=== PATIENT | male | born 1940 | race Caucasian/White ===

== ENCOUNTER 2018-10-30 10:20 | Emergency (ER) | payer MEDICARE ==
[2018-10-30] MEDS ORDERED: Adenosine 6 MG/2 ML SDV IVPUSH ONE (10:35)
[2018-10-30] MEDS ORDERED: Propofol 200 MG/20 ML SDV IVPUSH ONE (10:47)
--- NOTE | 2018-10-30 10:54 | EDM.PDOC ---
ED HPI GENERAL MEDICAL PROBLEM - General Chief Complaint: Chest Pain Stated Complaint: [facility] Time Seen by Provider: 10/30/18 10:30 Source of Information: Reports: Patient, EMS, Family History Limitations: Reports: No Limitations - History of Present Illness INITIAL COMMENTS - FREE TEXT/NARRATIVE: 78-year-old male developed fairly sudden onset of mild shortness of breath and slight chest pressure and a half ago. The ambulance was called and he was found to be in a very rapid wide complex tachycardia. Mildly diaphoretic. Onset: Today, Sudden Duration: Hour(s): (Symptoms for the past 90 minutes) Location: Reports: Chest (Mild chest tightness) Associated Symptoms: Reports: Shortness of Breath, Weakness. Denies: Cough, Nausea/Vomiting Anterior Chest Pain Score (Numeric/FACES): 3 - Related Data Allergies Allergy/AdvReac Type Severity Reaction Status Date / Time tree polen Allergy Cannot Uncoded 10/30/18 10:33 Remember Home Meds: Home Meds Hydrochlorothiazide/Lisinopril [Lisinopril-HCTZ 20-25 MG] 20 mg PO DAILY [History] Pravastatin Sodium 40 mg PO BEDTIME 08/30/13 [History] amLODIPine Besylate [Amlodipine Besylate] 10 mg PO DAILY 08/30/13 [History] metFORMIN [Glucophage XR] 1,000 mg PO DAILY 08/30/13 [History] Rivaroxaban [Xarelto] 10 mg PO DAILY 09/04/13 [History] Acetaminophen [Tylenol] 1 tab PO Q4H PRN 09/05/13 [History] Aspirin [Adult Low Dose Aspirin EC] 81 mg PO DAILY 09/19/13 [History] Cod Liver Oil 1 each PO DAILY 10/30/18 [History] Social & Family History - Tobacco Use Smoking Status *Q: Never Smoker Second Hand Smoke Exposure: No - Caffeine Use Caffeine Use: Reports: Coffee - Alcohol Use Days Per Week of Alcohol Use: 7 Number of Drinks Per Day: 2 Total Drinks Per Week: 14 - Recreational Drug Use Recreational Drug Use: No ED ROS GENERAL - Review of Systems Review Of Systems: See Below Constitutional: Reports: Malaise. Denies: Fever, Chills HEENT: Reports: No Symptoms Respiratory: Reports: Shortness of Breath. Denies: Cough Cardiovascular: Reports: Palpitations GI/Abdominal: Denies: Abdominal Pain, Nausea, Vomiting Skin: Reports: Diaphoresis Neurological: Reports: Weakness Psychiatric: Reports: No Symptoms ED EXAM, GENERAL - Physical Exam Exam: See Below Exam Limited By: No Limitations General Appearance: Alert, No Apparent Distress Eye Exam: Bilateral Eye: Normal Inspection Head: Atraumatic Respiratory/Chest: No Respiratory Distress, Lungs Clear Cardiovascular: Tachycardia GI/Abdominal: Soft, Non-Tender Extremities: Other (Just a trace of bilateral symmetric edema) Neurological: Alert, Oriented, No Motor/Sensory Deficits Psychiatric: Normal Affect, Normal Mood Skin Exam: Diaphoretic Course - Vital Signs Last Recorded V/S: Last Vital Signs Temp 95.5 F 10/30/18 10:33 Pulse 99 10/30/18 11:15 Resp 14 10/30/18 11:15 BP 118/73 10/30/18 11:15 Pulse Ox 99 10/30/18 11:15 - Orders/Labs/Meds Orders: Active Orders 24 hr Category Date Time Status EKG Documentation Completion [RC] ASDIRECTED Care 10/30/18 10:54 Active EKG 12 Lead [EK] Routine Ther 10/30/18 10:54 Ordered Labs: Laboratory Tests 10/30/18 10/30/18 Range/Units 11:04 11:04 WBC 8.2 (4.5-11.0) K/uL RBC 3.41 L (4.30-5.90) M/uL Hgb 12.2 (12.0-15.0) g/dL Hct 35.4 L (40.0-54.0) % MCV 104 H (80-98) fL MCH 36 H (27-31) pg MCHC 35 (32-36) % Plt Count 238 (150-400) K/uL Neut % (Auto) 79 H (36-66) % Lymph % (Auto) 12 L (24-44) % [place] % (Auto) 8 H (2-6) % Eos % (Auto) 1 L (2-4) % Baso % (Auto) 0 (0-1) % Sodium 139 L (140-148) mmol/L Potassium 3.4 L (3.6-5.2) mmol/L Chloride 104 (100-108) mmol/L Carbon Dioxide 21 (21-32) mmol/L Anion Gap 17.4 H (5.0-14.0) mmol/L BUN 20 H (7-18) mg/dL Creatinine 1.3 (0.8-1.3) mg/dL Est Cr Clr Drug Dosing 53.78 mL/min Estimated GFR (MDRD) 54 L (>60) Glucose 290 H (74-106) mg/dL Calcium 8.3 L (8.5-10.1) mg/dL Total Bilirubin 1.3 H (0.2-1.0) mg/dL AST 21 (15-37) U/L ALT 19 (12-78) U/L Alkaline Phosphatase 55 (46-116) U/L Troponin I < 0.017 (0.000-0.056) ng/mL Total Protein 6.5 (6.4-8.2) g/dL Albumin 3.6 (3.4-5.0) g/dL Globulin 2.9 (2.3-3.5) g/dL Albumin/Globulin Ratio 1.2 (1.2-2.2) Meds: Medications Discontinued Medications Generic Name Dose Route Start Last Admin Trade Name Niurka PRN Reason Stop Dose Admin Adenosine 6 mg 10/30/18 10:35 10/30/18 10:46 Adenocard IVPUSH 10/30/18 10:36 6 mg NOW ONE Administration Propofol 100 mg 10/30/18 10:47 10/30/18 11:41 Diprivan 20 Ml IVPUSH 10/30/18 10:48 100 mg ONETIME ONE Administration Propofol Confirm 10/30/18 11:03 Diprivan 20 Ml Administered 10/30/18 11:04 Dose 200 mg .ROUTE .STK-MED ONE - Re-Assessments/Exams Free Text/Narrative Re-Assessment/Exam: 10/30/18 11:29 Patient arrived in a wide-complex tachycardia with a rate of over 230. It was very regular. EMS started a bolus of amiodarone which had no significant effect. He was having just slight chest pressure and shortness of breath, no nausea or vomiting. An IV was already started by EMS. CBC, CMP, troponin were drawn and one 6 mg addendum hard IV bolus was attempted. His had no effect on the patient in ED came more lightheaded and mildly hypotensive so we set him up for urgent sicker and his cardioversion. With the assistance of anesthesia, propofol sedation was used and the patient converted with 200 J of synchronized cardioversion. Only one attempt was needed, he converted to his baseline atrial fibrillation. 10/30/18 11:33 Patient was monitored for an additional 45 minutes after cardioversion, he had no symptoms and remained in atrial fibrillation. Labs returned very reassuring with a troponin of 0, normal CBC and electrolytes. Glucose was elevated which is expected after cardioversion. He is type II diabetic. He does not want to be hospitalized unless absolutely necessary, he will return if symptoms recur. I encouraged him to stay hydrated and increase activity as tolerated. Departure - Departure Time of Disposition: 11:50 Disposition: Home, Self-Care 01 Clinical Impression: Sustained SVT Instructions: Supraventricular Tachycardia, Adult Referrals: PCP,None [Primary Care Provider] - Forms: ED Department Discharge Care Plan Goals: Continue your current medications, stay hydrated and increase activity as tolerated. Return anytime if symptoms recur and persist or you develop other concerns. - My Orders Last 24 Hours: My Active Orders 10/30/18 10:54 EKG Documentation Completion [RC] ASDIRECTED EKG 12 Lead [EK] Routine - Assessment/Plan Last 24 Hours: My Active Orders 10/30/18 10:54 EKG Documentation Completion [RC] ASDIRECTED EKG 12 Lead [EK] Routine
[2018-10-30] MEDS ORDERED: Propofol 200 MG/20 ML SDV ONE (11:03)
== END 2018-10-30 12:02 | disposition home or self-care (01) ==
LOC: JP.ED 10:20
DX: I47.1 Supraventricular tachycardia (principal); Z91.048 Other nonmedicinal substance allergy status; Z79.899 Other long term (current) drug therapy; Z79.82 Long term (current) use of aspirin; Z79.84 Long term (current) use of oral hypoglycemic drugs
CPT/HCPCS: 36415; 80053; 84484; 85025; 92960; 93005; 93010; 99283; 99285; J0153; J2704; 96374

== ENCOUNTER 2020-11-01 04:25 | Emergency (ER) | payer MEDICARE, OTHER ==
--- NOTE | 2020-11-01 04:58 | EDM.PDOC ---
<OfficerDavid - Last Filed: 11/01/20 05:34> ED HPI GENERAL MEDICAL PROBLEM - General Chief Complaint: Chest Pain Stated Complaint: [facility] Time Seen by Provider: 11/01/20 04:45 Source of Information: Reports: Patient, Family, Old Records, RN Notes Reviewed History Limitations: Reports: No Limitations - History of Present Illness INITIAL COMMENTS - FREE TEXT/NARRATIVE: 80-year-old gentleman presents emergency department today via EMS services new onset chest pain. He has known history of chronic persistent atrial fibrillation that he has had for several years he is anticoagulated with Xarelto. This particular event he awoke this morning about an hour prior to presentation with chest pain EMS services were called on initial evaluation the rate appears to be a wide complex tachycardia consistent with a ventricular fibrillation, was given 100 mg ketamine and provided 1 shock which then converted him back to atrial fibrillation rate around 70s. At this time he denies any chest pain shortness of breath palpitations no nausea vomiting diaphoresis. he took aspirin at home chest pain Pain Score (Numeric/FACES): 0 - Related Data Allergies Allergy/AdvReac Type Severity Reaction Status Date / Time tree polen Allergy Cannot Uncoded 11/01/20 04:36 Remember Home Meds: Home Meds Pravastatin Sodium 20 mg PO BEDTIME 08/30/13 [History] metFORMIN [Glucophage XR] 1,000 mg PO DAILY 08/30/13 [History] Acetaminophen [Tylenol] 1 tab PO Q4H PRN 09/05/13 [History] Furosemide 20 mg PO QAM 11/01/20 [History] Lisinopril/Hydrochlorothiazide [Lisinopril-Hctz 20-25 mg Tab] 1 each PO DAILY 11/01/20 [History] Metoprolol Succinate 25 mg PO DAILY 11/01/20 [History] Rivaroxaban [Xarelto] 10 mg PO DAILY 11/01/20 [History] amLODIPine [Norvasc] 10 mg PO DAILY 11/01/20 [History] Past Medical History HEENT History: Reports: Hard of Hearing, Impaired Vision Cardiovascular History: Reports: Afib Musculoskeletal History: Reports: Fracture Other Musculoskeletal History: arm Endocrine/Metabolic History: Reports: Diabetes, Type II Dermatologic History: Reports: Other (See Below) Other Dermatologic History: l finger surgery for possible tumor - Infectious Disease History Infectious Disease History: Reports: Chicken Pox - Past Surgical History GI Surgical History: Reports: Hernia, Abdominal Musculoskeletal Surgical History: Reports: Other (See Below) Other Musculoskeletal Surgeries/Procedures:: back surgery Social & Family History - Family History Family Medical History: No Pertinent Family History - Tobacco Use Tobacco Use Status *Q: Former Tobacco User Used Tobacco, but Quit: Yes Month/Year Tobacco Last Used: 50 years ago - Caffeine Use Caffeine Use: Reports: None - Alcohol Use Days Per Week of Alcohol Use: 7 Number of Drinks Per Day: 2 Total Drinks Per Week: 14 - Recreational Drug Use Recreational Drug Use: No ED ROS GENERAL - Review of Systems Review Of Systems: See Below Constitutional: Reports: No Symptoms HEENT: Reports: No Symptoms Respiratory: Reports: No Symptoms Cardiovascular: Reports: Chest Pain GI/Abdominal: Reports: No Symptoms ED EXAM, GENERAL - Physical Exam Exam: See Below Exam Limited By: No Limitations General Appearance: Alert, WD/WN, No Apparent Distress Respiratory/Chest: No Respiratory Distress, Lungs Clear, Normal Breath Sounds, No Accessory Muscle Use, Chest Non-Tender Cardiovascular: No Murmur, Irregularly Irregular GI/Abdominal: Soft, Non-Tender Extremities: Normal Inspection, Pedal Edema #1 Interpretation EKG Date: 11/01/20 Time: 05:00 Rhythm: A-Fib [place]: Normal P-Wave: Absent QRS: Normal ST-T: Normal QT: Normal Comparison: No Change Departure - Departure Disposition: Home, Self-Care 01 Clinical Impression: Non-STEMI (non-ST elevated myocardial infarction) Instructions: Heart Attack, [id number] Referrals: PCP,None [Primary Care Provider] - Forms: ED Department Discharge Care Plan Goals: Continue your current medications, I would recommend a full 25 mg of metoprolol daily. Avoid any significant physical activity this , rest and relax. Recheck Wednesday as scheduled. Sepsis Event Note (ED) - Evaluation Sepsis Screening Result: No Definite Risk <Salvador Lay - Last Filed: 11/01/20 12:39> Course - Vital Signs Last Recorded V/S: Last Vital Signs Temp 98.0 F 11/01/20 04:30 Pulse 75 11/01/20 07:42 Resp 12 11/01/20 07:42 BP 137/72 11/01/20 07:42 Pulse Ox 92 L 11/01/20 07:42 - Orders/Labs/Meds Orders: Active Orders 24 hr Category Date Time Status EKG 12 Lead [EK] Stat Ther 11/01/20 04:52 Ordered Labs: Laboratory Tests 11/01/20 11/01/20 11/01/20 Range/Units 05:02 05:02 08:00 WBC 10.1 (4.5-11.0) K/uL RBC 3.23 L (4.30-5.90) M/uL Hgb 11.0 L (12.0-15.0) g/dL Hct 33.9 L (40.0-54.0) % MCV 105 H (80-98) fL MCH 34 H (27-31) pg MCHC 32 (32-36) % Plt Count 637 H (150-400) K/uL Neut % (Auto) 85.4 H (36-66) % Lymph % (Auto) 7.7 L (24-44) % [place] % (Auto) 5.0 (2-6) % Eos % (Auto) 1.5 L (2-4) % Baso % (Auto) 0.4 (0-1) % Sodium 142 (140-148) mmol/L Potassium 3.7 (3.6-5.2) mmol/L Chloride 105 (100-108) mmol/L Carbon Dioxide 24 (21-32) mmol/L Anion Gap 12.7 (5.0-14.0) mmol/L BUN 14 (7-18) mg/dL Creatinine 1.1 (0.8-1.3) mg/dL Est Cr Clr Drug Dosing 61.54 mL/min Estimated GFR (MDRD) > 60 (>60) Glucose 272 H (74-106) mg/dL Calcium 8.3 L (8.5-10.1) mg/dL Total Bilirubin 0.8 (0.2-1.0) mg/dL AST 27 (15-37) U/L ALT 24 (12-78) U/L Alkaline Phosphatase 86 (46-116) U/L Troponin I 0.046 0.401 H* (0.000-0.056) ng/mL Total Protein 6.2 L (6.4-8.2) g/dL Albumin 3.4 (3.4-5.0) g/dL Globulin 2.8 (2.3-3.5) g/dL Albumin/Globulin Ratio 1.2 (1.2-2.2) - Re-Assessments/Exams Free Text/Narrative Re-Assessment/Exam: 11/01/20 09:26 80-year-old male that had chest pressure and a run of apparent V. tach at home and was cardioverted by EMS and brought in for evaluation. He is stable but awaiting a second troponin so care was turned over from Dr. Officer to myself. Initial troponin was 0.04, second troponin drawn at 8 AM was 0.40. He remains in atrial fibrillation with excellent rate control, normal vitals and wants to go home. He has an echocardiogram and physical set up on Wednesday at the [facility]. Because of the rising troponin, I did call the [facility] and discussed this with the administrative executive, she insisted that he should be admitted to a center that has a ca pability to do an angiogram however there is no hospital within 200 miles that has angiogram capabilities that has an open bed right now that is willing to accept the patient unless it is a STEMI which is symptomatic. I tried to explain this to the physician at the [facility] that this patient would be better served in a hospital bed at the [facility] where he has closed to angiogram centers if he develops problems but I could not convince her. I then called [facility] in [place] as well as [facility] in [place], both were unable to accept the patient at this time and asked us to board the patient here in the emergency room until they were able to take him as an admission and that may take up to several days. When I explained this to the patient he insisted he wanted to go home, he felt fine, felt he was fine, and he will return if he redevelops symptoms. 11/01/20 12:39 I did recommend to the patient that he stay until we can get him admitted but he insisted on going home. He will return if symptoms redevelop. Departure - Departure Time of Disposition: 09:42 Sepsis Event Note (ED) - Focused Exam Vital Signs: Vital Signs Temp Pulse Resp BP Pulse Ox 11/01/20 07:42 75 12 137/72 92 L 11/01/20 06:00 73 13 147/74 H 95 11/01/20 05:30 62 16 141/76 H 93 L 11/01/20 05:15 67 13 131/70 92 L 11/01/20 05:00 75 15 138/78 93 L 11/01/20 04:45 76 17 133/70 92 L 11/01/20 04:30 98.0 F 76 18 140/71 93 L
--- NOTE | 2020-11-01 09:25 | CR ---
CHEST: Portable 11/01/2020 at 5:15 AM CLINICAL HISTORY:Chest pain COMPARISON:2010 FINDINGS: Heart is enlarged. Pulmonary vasculature is normal. There is patchy density in the right lower lobe. Some of this is chronic. There is minimal patchy density in the left infrahilar region similar to prior exams. IMPRESSION: Patchy right lower lobe density. Though some of this may be chronic and superimposed pneumonic infiltrate is not excluded. 2 view chest May BE helpful
== END 2020-11-01 09:50 | disposition home or self-care (01) ==
LOC: JP.ED 04:25
DX: I21.4 Non-ST elevation (NSTEMI) myocardial infarction (principal); I48.91 Unspecified atrial fibrillation; E11.9 Type 2 diabetes mellitus without complications; Z87.891 Personal history of nicotine dependence; Z91.048 Other nonmedicinal substance allergy status; Z79.01 Long term (current) use of anticoagulants; Z79.84 Long term (current) use of oral hypoglycemic drugs; Z79.899 Other long term (current) drug therapy
CPT/HCPCS: 36415; 71045; 71045-26; 80053; 84484; 85025; 92960; 93005; 99285-25

== ENCOUNTER 2021-09-05 06:20 | Day surgery (SDC) | payer OTHER ==
[2021-09-05] MEDS ORDERED: Dextrose 5%-Lactated Ringers 1,000 ML IV SCH (06:45)
[2021-09-05] MEDS ORDERED: Propofol 200 MG/20 ML SDV ONE (07:17)
[2021-09-05] MEDS ORDERED: fentaNYL 100 MCG/2 ML SDV ONE (07:17)
== END 2021-09-05 09:40 | disposition home or self-care (01) ==
LOC: JP.SDS 06:20
PROVIDERS: ATTEND Family Medicine
DX: Z12.11 Encounter for screening for malignant neoplasm of colon (principal); D12.3 Benign neoplasm of transverse colon; I48.0 Paroxysmal atrial fibrillation; E11.9 Type 2 diabetes mellitus without complications; I10 Essential (primary) hypertension; Z80.0 Family history of malignant neoplasm of digestive organs
CPT/HCPCS: 45380; 88305; J2704; J3010; J7121

== ENCOUNTER 2021-09-25 22:31 | Emergency (ER) | payer OTHER ==
[2021-09-26] MEDS ORDERED: HYDROmorphone 1 MG/ML Syringe IM ONE (00:02)
[2021-09-26] MEDS ORDERED: Methocarbamol 500 MG Tab PO ONE (00:44)
== END 2021-09-26 01:45 | disposition home or self-care (01) ==
LOC: JP.ED 22:31
DX: S13.4XXA Sprain of ligaments of cervical spine, initial encounter (principal); S20.212A Contusion of left front wall of thorax, initial encounter; S40.012A Contusion of left shoulder, initial encounter; I48.91 Unspecified atrial fibrillation; E11.9 Type 2 diabetes mellitus without complications; E78.00 Pure hypercholesterolemia, unspecified; I10 Essential (primary) hypertension; Z87.891 Personal history of nicotine dependence; Z91.09 Other allergy status, other than to drugs and biological substances; Z79.84 Long term (current) use of oral hypoglycemic drugs; Z79.899 Other long term (current) drug therapy; Z79.01 Long term (current) use of anticoagulants; W01.0XXA Fall on same level from slipping, tripping and stumbling without subsequent striking against object, initial encounter
CPT/HCPCS: 71250; 96372; 99285; A9270; J1170

== ENCOUNTER 2022-06-17 13:58 | Emergency (ER) | payer OTHER ==
[2022-06-17] MEDS ORDERED: Sodium Chloride 0.9% 10 ML Syringe FLUSH PRN (16:03)
[2022-06-17] MEDS ORDERED: Sodium Chloride 0.9% 1,000 ML IV STA (16:03)
[2022-06-17] MEDS ORDERED: Ondansetron 4 MG/2 ML SDV IVPUSH ONE (16:04)
[2022-06-17] MEDS ORDERED: fentaNYL 100 MCG/2 ML SDV IVPUSH ONE (16:04)
[2022-06-17] MEDS ORDERED: Sodium Chloride 0.9% 10 ML Syringe FLUSH ONE (16:22)
[2022-06-17] MEDS ORDERED: Sodium Chloride 0.9% 50 ML IV ONE (16:22)
[2022-06-17] MEDS ORDERED: Iopamidol 612 MG/ML 100 ML Bottle IV ONE (16:22)
[2022-06-17 16:25] LABS: HEMATOCRIT 31.9 % (38.4-49.7); HEMOGLOBIN 9.7 g/dL (12.9-16.9); MEAN CORPUSCULAR HGB CONC 30.4 g/dL (31.6-35.5); MEAN CORPUSCULAR VOLUME 95.2 fL (81.4-99.0); RED BLOOD CELL COUNT 3.35 M/uL (4.14-5.76); WHITE BLOOD CELL COUNT,WBC 11.9 K/uL (3.2-11.0)
[2022-06-17 16:46] LABS: A/G RATIO 0.9 (1.2-2.2); ALANINE AMINOTRANSFERASE,ALT 129 U/L (12-78); ALBUMIN 3.3 g/dL (3.4-5.0); ALKALINE PHOSPHATASE 306 U/L (46-116); ASPARTATE AMNIOTRANSFERASE,AST 172 U/L (15-37); BILIRUBIN TOTAL 4.4 mg/dL (0.2-1.0); BLOOD UREA NITROGEN,BUN 15 mg/dL (7-18); CALCIUM 8.7 mg/dL (8.5-10.1); CARBON DIOXIDE,CO2 26 mmol/L (21-32); CHLORIDE,CL 102 mmol/L (100-108); EST CRCL DRUG DOSING (CG) 64.67 mL/min; ESTIMATED GFR 76 mL/min (>60); GLUCOSE RANDOM 226 mg/dL (74-106); POTASSIUM,K 3.9 mmol/L (3.6-5.2); PROTEIN TOTAL,TP 6.9 g/dL (6.4-8.2); SODIUM,NA 137 mmol/L (140-148)
[2022-06-17 16:46] LABS: BILIRUBIN,URINE MODERATE (NEGATIVE); COLOR,URINE YELLOW (YELLOW); GLUCOSE,URINE NEGATIVE (NEGATIVE); KETONES,URINE NEGATIVE (NEGATIVE); LEUKOCYTE ESTERASE,URINE NEGATIVE (NEGATIVE); NITRITE,URINE NEGATIVE (NEGATIVE); OCCULT BLOOD,URINE TRACE-INTACT (NEGATIVE); PH,URINE 5.5 (5.0-8.0); PROTEIN,URINE 100 mg/dL (NEGATIVE); UROBILINOGEN,URINE >=8.0 EU/dL (0.2-1.0)
[2022-06-17 16:50] LABS: BAND ABSOLUTE MAN 0.83 K/uL; BAND PERCENT MAN 7 % (5-11); BASOPHILS ABSOLUTE MAN 0.12 K/uL (0.00-0.10); BASOPHILS PERCENT MAN 1 % (0-1); EOSINOPHILS ABSOLUTE MAN 0.12 K/uL (0.00-0.40); EOSINOPHILS PERCENT MAN 1 % (2-4); LYMPHOCYTES ABSOLUTE MAN 0.36 K/uL (0.8-3.3); LYMPHOCYTES PERCENT MAN 3 % (24-44); MONOCYTES ABSOLUTE MAN 0.48 K/uL (0.20-0.90); MONOCYTES PERCENT MAN 4 % (2-6); NRBC MANUAL 1; SEG NEUTROPHILS PERCENT MAN 84 % (36-66)
[2022-06-17 16:53] LABS: OVALOCYTES FEW
[2022-06-17 16:54] LABS: AMORPHOUS SEDIMENT,URINE NOT SEEN; APPEARANCE,URINE SLIGHTLY CLOUDY (CLEAR); BACTERIA,URINE FEW; EPITHELIAL CELLS,URINE NOT SEEN; MUCUS,URINE NOT SEEN; RBC,URINE 0-5 (0-5)
[2022-06-17 16:56] LABS: ANISOCYTOSIS MODERATE; POIKILOCYTOSIS FEW
[2022-06-17 16:58] LABS: PLATELET COUNT,PLT 683 K/uL (130-375)
[2022-06-17 17:04] LABS: ANION GAP 12.9 mmol/L (5.0-14.0)
[2022-06-17 17:11] LABS: LIPASE 38525 U/L (73-393)
[2022-06-17] MEDS ORDERED: Piperacillin/Tazobactam 3.375 GM in Sodium Chloride 0.9% 50 ML IV ONE (20:28)
[2022-06-17] MEDS ORDERED: Sodium Chloride 0.9% 1,000 ML IV SCH (20:45)
[2022-06-17] MEDS ORDERED: fentaNYL 50 MCG/ML SDV IVPUSH ONE (21:21)
[2022-06-17] MEDS ORDERED: HYDROmorphone 0.5 MG/0.5 ML Syringe IVPUSH ONE (23:33)
[2022-06-18] MEDS: Piperacillin/Tazobactam 3.375 GM in Sodium Chloride 0.9% 50 ML IV SCH ×2 (03:49→10:15)
[2022-06-18] MEDS ORDERED: HYDROmorphone 0.5 MG/0.5 ML Syringe IVPUSH ONE ×2 (06:04→09:16)
[2022-06-18 06:13] LABS: A/G RATIO 0.8 (1.2-2.2); ALANINE AMINOTRANSFERASE,ALT 156 U/L (12-78); ALBUMIN 2.7 g/dL (3.4-5.0); ALKALINE PHOSPHATASE 292 U/L (46-116); ANION GAP 6.5 mmol/L (5.0-14.0); ASPARTATE AMNIOTRANSFERASE,AST 188 U/L (15-37); BILIRUBIN TOTAL 3.8 mg/dL (0.2-1.0); BLOOD UREA NITROGEN,BUN 12 mg/dL (7-18); CARBON DIOXIDE,CO2 27 mmol/L (21-32); CHLORIDE,CL 107 mmol/L (100-108); EST CRCL DRUG DOSING (CG) 64.67 mL/min; ESTIMATED GFR 76 mL/min (>60); GLUCOSE RANDOM 148 mg/dL (74-106); POTASSIUM,K 3.6 mmol/L (3.6-5.2); PROTEIN TOTAL,TP 5.9 g/dL (6.4-8.2); SODIUM,NA 140 mmol/L (140-148)
[2022-06-18 06:25] LABS: LIPASE 4093 U/L (73-393)
== END 2022-06-18 11:51 ==
LOC: JP.ED 13:58
DX: K85.10 Biliary acute pancreatitis without necrosis or infection (principal); K80.41 Calculus of bile duct with cholecystitis, unspecified, with obstruction; I25.10 Atherosclerotic heart disease of native coronary artery without angina pectoris; D64.9 Anemia, unspecified; I48.91 Unspecified atrial fibrillation; E11.9 Type 2 diabetes mellitus without complications; Z88.8 Allergy status to other drugs, medicaments and biological substances; Z79.899 Other long term (current) drug therapy; Z79.01 Long term (current) use of anticoagulants; Z95.810 Presence of automatic (implantable) cardiac defibrillator; Z79.84 Long term (current) use of oral hypoglycemic drugs
CPT/HCPCS: 36415; 74177; 76705; 80053; 81001; 83605; 83690; 85025; 87635; 96361; 96365; 96366; 96375; 96376; 99285; J1170; J2405; J2543; J3010; J3490; J7030; Q9967; U0002

== ENCOUNTER 2022-10-02 19:13 | Emergency (ER) | payer OTHER ==
[2022-10-02 19:31] LABS: APPEARANCE,URINE TURBID (CLEAR); BILIRUBIN,URINE SMALL (NEGATIVE); COLOR,URINE BROWN (YELLOW); GLUCOSE,URINE NEGATIVE (NEGATIVE); KETONES,URINE NEGATIVE (NEGATIVE); LEUKOCYTE ESTERASE,URINE SMALL (NEGATIVE); NITRITE,URINE NEGATIVE (NEGATIVE); OCCULT BLOOD,URINE LARGE (NEGATIVE); PROTEIN,URINE 100 mg/dL (NEGATIVE); UROBILINOGEN,URINE >=8.0 EU/dL (0.2-1.0)
[2022-10-02 19:36] LABS: RBC,URINE PACKED (0-5)
[2022-10-02 19:37] LABS: AMORPHOUS SEDIMENT,URINE NOT SEEN; BACTERIA,URINE FEW; EPITHELIAL CELLS,URINE RARE; MUCUS,URINE NOT SEEN
[2022-10-02 21:37] LABS: HEMATOCRIT 30.3 % (38.4-49.7); HEMOGLOBIN 9.6 g/dL (12.9-16.9); MEAN CORPUSCULAR HEMOGLOBIN 27.6 pg (31.6-35.5); MEAN CORPUSCULAR HGB CONC 31.7 g/dL (31.6-35.5); MEAN CORPUSCULAR VOLUME 87.1 fL (81.4-99.0); PLATELET COUNT,PLT 417 K/uL (130-375); RED BLOOD CELL COUNT 3.48 M/uL (4.14-5.76); WHITE BLOOD CELL COUNT,WBC 6.6 K/uL (3.2-11.0)
[2022-10-02 21:59] LABS: A/G RATIO 1.2 (1.2-2.2); ALANINE AMINOTRANSFERASE,ALT 16 U/L (12-78); ALBUMIN 3.8 g/dL (3.4-5.0); ALKALINE PHOSPHATASE 109 U/L (46-116); ASPARTATE AMNIOTRANSFERASE,AST 39 U/L (15-37); BAND ABSOLUTE MAN 0.26 K/uL; BAND PERCENT MAN 4 % (5-11); BASOPHILS ABSOLUTE MAN 0.07 K/uL (0.00-0.10); BASOPHILS PERCENT MAN 1 % (0-1); BILIRUBIN TOTAL 2.1 mg/dL (0.2-1.0); BLOOD UREA NITROGEN,BUN 20 mg/dL (7-18); C-REACTIVE PROTEIN 0.22 mg/dL (0.0-0.3); CALCIUM 8.8 mg/dL (8.5-10.1); CARBON DIOXIDE,CO2 24 mmol/L (21-32); CHLORIDE,CL 102 mmol/L (100-108); EOSINOPHILS ABSOLUTE MAN 0.13 K/uL (0.00-0.40); EOSINOPHILS PERCENT MAN 2 % (2-4); EST CRCL DRUG DOSING (CG) 65.47 mL/min; ESTIMATED GFR 76 mL/min (>60); GLUCOSE RANDOM 169 mg/dL (74-106); LYMPHOCYTES ABSOLUTE MAN 0.86 K/uL (0.8-3.3); LYMPHOCYTES PERCENT MAN 13 % (24-44); METAMYELOCYTE ABSOLUTE MAN 0.26 K/uL; METAMYELOCYTE PERCENT MAN 4 %; MONOCYTES ABSOLUTE MAN 0.26 K/uL (0.20-0.90); MONOCYTES PERCENT MAN 4 % (2-6); MYELOCYTE ABSOLUTE MAN 0.07; MYELOCYTE PERCENT MAN 1 %; NEUTROPHILS ABSOLUTE MAN 4.69 K/uL (1.0-7.6); POTASSIUM,K 4.2 mmol/L (3.6-5.2); PROTEIN TOTAL,TP 6.9 g/dL (6.4-8.2); SEG NEUTROPHILS PERCENT MAN 71 % (36-66); SODIUM,NA 137 mmol/L (140-148)
[2022-10-02 22:00] LABS: ANION GAP 15.2 mmol/L (5.0-14.0)
[2022-10-02 22:02] LABS: ANISOCYTOSIS MODERATE; LACTIC ACID 1.7 mmol/L (0.4-2.0)
[2022-10-02 22:04] LABS: OVALOCYTES FEW
[2022-10-02 22:05] LABS: NRBC MANUAL 5; TARGET CELLS FEW; TEARDROP CELLS FEW
[2022-10-02 22:06] LABS: POIKILOCYTOSIS MODERATE; SPHEROCYTES RARE
== END 2022-10-02 22:30 | disposition home or self-care (01) ==
LOC: JP.ED 19:13
DX: N39.0 Urinary tract infection, site not specified (principal); I10 Essential (primary) hypertension; E11.9 Type 2 diabetes mellitus without complications; Z91.048 Other nonmedicinal substance allergy status
CPT/HCPCS: 36415; 80053; 81001; 83605; 85025; 86140; 87086; 99283

== ENCOUNTER 2022-10-05 15:03 | Emergency (ER) | payer OTHER ==
[2022-10-05 16:47] LABS: HEMATOCRIT 30.3 % (38.4-49.7); HEMOGLOBIN 9.5 g/dL (12.9-16.9); MEAN CORPUSCULAR HEMOGLOBIN 27.7 pg (31.6-35.5); MEAN CORPUSCULAR HGB CONC 31.4 g/dL (31.6-35.5); MEAN CORPUSCULAR VOLUME 88.3 fL (81.4-99.0); PLATELET COUNT,PLT 390 K/uL (130-375); RED BLOOD CELL COUNT 3.43 M/uL (4.14-5.76); WHITE BLOOD CELL COUNT,WBC 6.8 K/uL (3.2-11.0)
[2022-10-05 17:12] LABS: ANION GAP 9.9 mmol/L (5.0-14.0); CALCIUM 8.5 mg/dL (8.5-10.1); CREATININE 0.9 mg/dL (0.8-1.3); EST CRCL DRUG DOSING (CG) 72.75 mL/min; POTASSIUM,K 3.6 mmol/L (3.6-5.2)
[2022-10-05 17:28] LABS: BAND ABSOLUTE MAN 0.88 K/uL; BAND PERCENT MAN 13 % (5-11); LYMPHOCYTES ABSOLUTE MAN 0.88 K/uL (0.8-3.3); LYMPHOCYTES PERCENT MAN 13 % (24-44); MONOCYTES ABSOLUTE MAN 0.54 K/uL (0.20-0.90); MONOCYTES PERCENT MAN 8 % (2-6); NEUTROPHILS ABSOLUTE MAN 4.49 K/uL (1.0-7.6); SEG NEUTROPHILS PERCENT MAN 66 % (36-66)
[2022-10-05] MEDS ORDERED: Sodium Chloride 0.9% 10 ML Syringe FLUSH PRN (17:34)
[2022-10-05] MEDS ORDERED: Sodium Chloride 0.9% 50 ML IV SCH (17:45)
[2022-10-05] MEDS ORDERED: Iopamidol 612 MG/ML 100 ML Bottle IV SCH (17:45)
== END 2022-10-05 20:00 | disposition home or self-care (01) ==
LOC: JP.ED 15:03
DX: R13.10 Dysphagia, unspecified (principal); E78.00 Pure hypercholesterolemia, unspecified; I10 Essential (primary) hypertension; I48.91 Unspecified atrial fibrillation; E11.9 Type 2 diabetes mellitus without complications; Z91.018 Allergy to other foods; Z79.899 Other long term (current) drug therapy
CPT/HCPCS: 36415; 71260; 80048; 85025; 99284; J3490; Q9967

== ENCOUNTER 2022-10-08 06:14 | Day surgery (SDC) | payer OTHER ==
[~2022-10-08 06:14] MED LIST: Propofol 200 MG/20 ML SDV ONE; fentaNYL 50 MCG/ML SDV ONE
[2022-10-08] MEDS ORDERED: Sodium Chloride 0.9% 1,000 ML IV SCH (07:30)
== END 2022-10-08 09:31 | disposition home or self-care (01) ==
LOC: JP.SDS 06:14
PROVIDERS: ATTEND Surgery
DX: D13.0 Benign neoplasm of esophagus (principal); K21.9 Gastro-esophageal reflux disease without esophagitis; K21.00 Gastro-esophageal reflux disease with esophagitis, without bleeding; E78.5 Hyperlipidemia, unspecified; N28.9 Disorder of kidney and ureter, unspecified; E11.9 Type 2 diabetes mellitus without complications; Z95.810 Presence of automatic (implantable) cardiac defibrillator
CPT/HCPCS: 43239; J2704; J3010; J7030; 88305

== ENCOUNTER 2023-07-28 21:10 | Emergency (ER) | payer OTHER | END 2023-07-28 22:49 | disposition home or self-care (01) | LOC: JP.ED 21:10 | DX: E86.0 Dehydration (principal); I10 Essential (primary) hypertension; E78.00 Pure hypercholesterolemia, unspecified; I48.91 Unspecified atrial fibrillation; E11.9 Type 2 diabetes mellitus without complications; Z86.16 Personal history of COVID-19; Z95.810 Presence of automatic (implantable) cardiac defibrillator; Z87.891 Personal history of nicotine dependence; Z79.899 Other long term (current) drug therapy; Z79.01 Long term (current) use of anticoagulants; Z88.8 Allergy status to other drugs, medicaments and biological substances; Z91.018 Allergy to other foods | CPT/HCPCS: 99283 ==

== ENCOUNTER 2024-06-30 15:14 | Emergency (ER) | payer OTHER | END 2024-06-30 17:53 | disposition home or self-care (01) | LOC: JP.ED 15:14 | DX: S53.402A Unspecified sprain of left elbow, initial encounter (principal); I48.91 Unspecified atrial fibrillation; I10 Essential (primary) hypertension; E78.00 Pure hypercholesterolemia, unspecified; E11.9 Type 2 diabetes mellitus without complications; Z86.16 Personal history of COVID-19; Z90.49 Acquired absence of other specified parts of digestive tract; Z88.8 Allergy status to other drugs, medicaments and biological substances; Z91.048 Other nonmedicinal substance allergy status; Z79.01 Long term (current) use of anticoagulants; Z79.84 Long term (current) use of oral hypoglycemic drugs; Z79.890 Hormone replacement therapy; Z79.899 Other long term (current) drug therapy; W19.XXXA Unspecified fall, initial encounter | CPT/HCPCS: 73080-26-LT; 73080-LT; 73200-26-LT; 73200-LT; 76377; 99284 ==

== ENCOUNTER 2024-07-10 20:16 | Emergency (ER) | payer OTHER ==
[2024-07-10 21:26] LABS: HEMATOCRIT 29.6 % (38.4-49.7); HEMOGLOBIN 9.2 g/dL (12.9-16.9); MEAN CORPUSCULAR HEMOGLOBIN 26.5 pg (31.6-35.5); MEAN CORPUSCULAR HGB CONC 31.1 g/dL (31.6-35.5); MEAN CORPUSCULAR VOLUME 85.3 fL (81.4-99.0); PLATELET COUNT,PLT 182 K/uL (130-375); RED BLOOD CELL COUNT 3.47 M/uL (4.14-5.76); WHITE BLOOD CELL COUNT,WBC 8.5 K/uL (3.2-11.0)
[2024-07-10 21:48] LABS: A/G RATIO 1.2 (1.2-2.2); ALANINE AMINOTRANSFERASE,ALT 22 U/L (12-78); ALBUMIN 3.7 g/dL (3.4-5.0); ALKALINE PHOSPHATASE 172 U/L (46-116); ASPARTATE AMNIOTRANSFERASE,AST 39 U/L (15-37); BILIRUBIN TOTAL 1.8 mg/dL (0.2-1.0); BLOOD UREA NITROGEN,BUN 46 mg/dL (7-18); CALCIUM 9.2 mg/dL (8.5-10.1); CARBON DIOXIDE,CO2 24 mmol/L (21-32); CHLORIDE,CL 105 mmol/L (100-108); CREATININE 1.2 mg/dL (0.8-1.3); EST CRCL DRUG DOSING (CG) 52.09 mL/min; ESTIMATED GFR 60 mL/min (>60); GLUCOSE RANDOM 134 mg/dL (74-106); POTASSIUM,K 4.9 mmol/L (3.6-5.2); PROTEIN TOTAL,TP 6.8 g/dL (6.4-8.2); SODIUM,NA 138 mmol/L (140-148)
[2024-07-10 21:52] LABS: ANION GAP 13.9 mmol/L (5.0-14.0)
[2024-07-10 21:56] LABS: BAND ABSOLUTE MAN 0.43 K/uL; BAND PERCENT MAN 5 % (5-11); BASOPHILS ABSOLUTE MAN 0.17 K/uL (0.00-0.10); BASOPHILS PERCENT MAN 2 % (0-1); EOSINOPHILS ABSOLUTE MAN 0.34 K/uL (0.00-0.40); EOSINOPHILS PERCENT MAN 4 % (2-4); LYMPHOCYTES ABSOLUTE MAN 1.28 K/uL (0.8-3.3); LYMPHOCYTES PERCENT MAN 15 % (24-44); METAMYELOCYTE ABSOLUTE MAN 0.26 K/uL; METAMYELOCYTE PERCENT MAN 3 %; MONOCYTES ABSOLUTE MAN 0.51 K/uL (0.20-0.90); MONOCYTES PERCENT MAN 6 % (2-6); MYELOCYTE ABSOLUTE MAN 0.26; MYELOCYTE PERCENT MAN 3 %; NEUTROPHILS ABSOLUTE MAN 5.27 K/uL (1.0-7.6); SEG NEUTROPHILS PERCENT MAN 62 % (36-66)
[2024-07-10 21:57] LABS: NRBC MANUAL 6
[2024-07-10] MEDS: Sodium Chloride 0.9% 1,000 ML IV SCH (22:00)
[2024-07-10 22:03] LABS: MAGNESIUM 2.2 mg/dL (1.8-2.4); TSH ULTRASENSITIVE 11.686 uIU/mL (0.358-3.740)
[2024-07-10] MEDS: Ondansetron 4 MG/2 ML SDV IVPUSH ONE (22:04)
[2024-07-10] MEDS: Pantoprazole 40 MG Vial IVPUSH ONE (22:04)
[2024-07-10 22:07] LABS: ATYPICAL LYMPHOCYTES RARE
[2024-07-10 22:22] LABS: BILIRUBIN,URINE NEGATIVE (NEGATIVE); COLOR,URINE YELLOW (YELLOW); GLUCOSE,URINE NEGATIVE (NEGATIVE); KETONES,URINE NEGATIVE (NEGATIVE); LEUKOCYTE ESTERASE,URINE SMALL (NEGATIVE); NITRITE,URINE NEGATIVE (NEGATIVE); OCCULT BLOOD,URINE TRACE-INTACT (NEGATIVE); PH,URINE 5.5 (5.0-8.0); PROTEIN,URINE 30 mg/dL (NEGATIVE); UROBILINOGEN,URINE 0.2 EU/dL (0.2-1.0)
[2024-07-10 22:28] LABS: AMORPHOUS SEDIMENT,URINE NOT SEEN; APPEARANCE,URINE SLIGHTLY CLOUDY (CLEAR); BACTERIA,URINE FEW; EPITHELIAL CELLS,URINE NOT SEEN; MUCUS,URINE NOT SEEN; RBC,URINE 0-5 (0-5)
[2024-07-10] MEDS: Sodium Chloride 0.9% 10 ML Syringe FLUSH ONE (22:29)
[2024-07-10] MEDS: Iopamidol 612 MG/ML 100 ML Bottle IV SCH (22:41)
[2024-07-10] MEDS: Sodium Chloride 0.9% 100 ML IV SCH (22:41)
== END 2024-07-10 23:41 | disposition home or self-care (01) ==
LOC: JP.ED 20:16
DX: E86.0 Dehydration (principal); E03.9 Hypothyroidism, unspecified; D64.9 Anemia, unspecified; I48.91 Unspecified atrial fibrillation; I25.10 Atherosclerotic heart disease of native coronary artery without angina pectoris; E78.00 Pure hypercholesterolemia, unspecified; I10 Essential (primary) hypertension; E11.9 Type 2 diabetes mellitus without complications; Z86.16 Personal history of COVID-19; Z90.49 Acquired absence of other specified parts of digestive tract; Z88.8 Allergy status to other drugs, medicaments and biological substances; Z91.048 Other nonmedicinal substance allergy status; Z79.01 Long term (current) use of anticoagulants; Z79.84 Long term (current) use of oral hypoglycemic drugs; Z79.890 Hormone replacement therapy; Z79.899 Other long term (current) drug therapy
CPT/HCPCS: 36415; 74177; 80053; 81001; 83690; 83735; 84443; 85025; 86140; 87086; 87635; 87651; 96361; 96374; 96375; 99285; J2405; J2470; J7030; Q9967; U0002

== ENCOUNTER 2024-10-16 16:37 | Emergency (ER) | payer OTHER ==
[2024-10-16 18:28] LABS: APPEARANCE,URINE TURBID (CLEAR); GLUCOSE,URINE NEGATIVE (NEGATIVE); OCCULT BLOOD,URINE LARGE (NEGATIVE)
[2024-10-16 18:29] LABS: SQUAMOUS EPITHELIAL CELLS,UR RARE /HPF; UROTHELIAL CELLS,URINE NOT SEEN /HPF
[2024-10-16 19:56] LABS: PLATELET COUNT,PLT 209 K/uL (130-375); RED BLOOD CELL COUNT 3.44 M/uL (4.14-5.76); WHITE BLOOD CELL COUNT,WBC 14.0 K/uL (3.2-11.0)
[2024-10-16 20:17] LABS: A/G RATIO 1.1 (1.2-2.2); ALANINE AMINOTRANSFERASE,ALT 26 U/L (12-78); ASPARTATE AMNIOTRANSFERASE,AST 64 U/L (15-37); BILIRUBIN TOTAL 2.1 mg/dL (0.2-1.0); BLOOD UREA NITROGEN,BUN 40 mg/dL (7-18); CARBON DIOXIDE,CO2 28 mmol/L (21-32); CHLORIDE,CL 101 mmol/L (100-108); CREATININE 1.3 mg/dL (0.8-1.3); EST CRCL DRUG DOSING (CG) 48.66 mL/min; ESTIMATED GFR 55 mL/min (>60); GLUCOSE RANDOM 156 mg/dL (74-106); POTASSIUM,K 4.8 mmol/L (3.6-5.2); PROTEIN TOTAL,TP 6.8 g/dL (6.4-8.2); SODIUM,NA 137 mmol/L (140-148)
[2024-10-16 20:24] LABS: BAND ABSOLUTE MAN 2.66 K/uL; BAND PERCENT MAN 19 % (5-11); BASOPHILS ABSOLUTE MAN 0.28 K/uL (0.00-0.10); BASOPHILS PERCENT MAN 2 % (0-1); BLAST ABSOLUTE MAN 0.28 K/uL (0-0); BLASTS PERCENT MAN 2 %; EOSINOPHILS ABSOLUTE MAN 0.98 K/uL (0.00-0.40); EOSINOPHILS PERCENT MAN 7 % (2-4); LYMPHOCYTES ABSOLUTE MAN 0.84 K/uL (0.8-3.3); LYMPHOCYTES PERCENT MAN 6 % (24-44); METAMYELOCYTE ABSOLUTE MAN 1.26 K/uL; METAMYELOCYTE PERCENT MAN 9 %; MONOCYTES ABSOLUTE MAN 1.12 K/uL (0.20-0.90); MONOCYTES PERCENT MAN 8 % (2-6); MYELOCYTE ABSOLUTE MAN 0.28; MYELOCYTE PERCENT MAN 2 %; NEUTROPHILS ABSOLUTE MAN 6.16 K/uL (1.0-7.6); PROMYELOCYTE ABSOLUTE MAN 0.14 K/uL; PROMYELOCYTE PERCENT MAN 1 %; SEG NEUTROPHILS PERCENT MAN 44 % (36-66)
[2024-10-16 20:25] LABS: NRBC MANUAL 15
[2024-10-16 20:28] LABS: TEARDROP CELLS FEW
[2024-10-16] MEDS: Iopamidol 612 MG/ML 100 ML Bottle IV ONE (20:37)
[2024-10-16] MEDS: Sodium Chloride 0.9% 10 ML Syringe FLUSH ONE (20:37)
== END 2024-10-16 21:54 | disposition home or self-care (01) ==
LOC: JP.ED 16:37
DX: N20.0 Calculus of kidney (principal); I48.91 Unspecified atrial fibrillation; I25.10 Atherosclerotic heart disease of native coronary artery without angina pectoris; I10 Essential (primary) hypertension; E78.00 Pure hypercholesterolemia, unspecified; E11.9 Type 2 diabetes mellitus without complications; Z86.16 Personal history of COVID-19; Z90.49 Acquired absence of other specified parts of digestive tract; Z88.8 Allergy status to other drugs, medicaments and biological substances; Z91.048 Other nonmedicinal substance allergy status; Z79.01 Long term (current) use of anticoagulants; Z79.84 Long term (current) use of oral hypoglycemic drugs; Z79.899 Other long term (current) drug therapy
CPT/HCPCS: 36415; 74178; 80053; 81001; 83605; 85025; 86140; 87086; 99284; Q9967

== ENCOUNTER 2024-10-17 13:27 | Emergency (ER) | payer OTHER ==
[2024-10-17 16:38] LABS: PLATELET COUNT,PLT 215 K/uL (130-375); RED BLOOD CELL COUNT 3.42 M/uL (4.14-5.76); WHITE BLOOD CELL COUNT,WBC 14.8 K/uL (3.2-11.0)
[2024-10-17 16:59] LABS: ATYPICAL LYMPHOCYTES FEW; BAND ABSOLUTE MAN 0.89 K/uL; BAND PERCENT MAN 6 % (5-11); BASOPHILS ABSOLUTE MAN 0.30 K/uL (0.00-0.10); BASOPHILS PERCENT MAN 2 % (0-1); BLAST ABSOLUTE MAN 0.15 K/uL (0-0); BLASTS PERCENT MAN 1 %; EOSINOPHILS ABSOLUTE MAN 0.74 K/uL (0.00-0.40); EOSINOPHILS PERCENT MAN 5 % (2-4); LYMPHOCYTES ABSOLUTE MAN 1.33 K/uL (0.8-3.3); LYMPHOCYTES PERCENT MAN 9 % (24-44); METAMYELOCYTE ABSOLUTE MAN 1.04 K/uL; METAMYELOCYTE PERCENT MAN 7 %; MONOCYTES ABSOLUTE MAN 1.63 K/uL (0.20-0.90); MONOCYTES PERCENT MAN 11 % (2-6); MYELOCYTE ABSOLUTE MAN 0.15; MYELOCYTE PERCENT MAN 1 %; NEUTROPHILS ABSOLUTE MAN 8.58 K/uL (1.0-7.6); SEG NEUTROPHILS PERCENT MAN 58 % (36-66); TEARDROP CELLS FEW
[2024-10-17 17:27] LABS: NRBC MANUAL 18
== END 2024-10-17 17:40 | disposition home or self-care (01) ==
LOC: JP.ED 13:27
DX: R31.9 Hematuria, unspecified (principal); I48.91 Unspecified atrial fibrillation; I25.10 Atherosclerotic heart disease of native coronary artery without angina pectoris; E11.9 Type 2 diabetes mellitus without complications; Z86.16 Personal history of COVID-19; Z88.1 Allergy status to other antibiotic agents; Z91.018 Allergy to other foods; Z79.899 Other long term (current) drug therapy; Z79.01 Long term (current) use of anticoagulants; Z79.84 Long term (current) use of oral hypoglycemic drugs
CPT/HCPCS: 36415; 85025; 99284